=== PATIENT | female | born 1985 | race African-American/Black ===

== ENCOUNTER 2017-03-13 16:05 | Emergency (ER) | payer OTHER ==
[~2017-03-13] VITALS: Ht 154.9 cm; Wt 89.0 kg
[~2017-03-13 16:05] MED LIST: BENZ100 PO; MMW SSP; Z.0.NO CURRENT MEDS; ZITH250T PO; ZOFR8TAB4 SL
[2017-03-13 16:07] VITALS: BP 140/62; PULSE 85; RESP 18; TEMP 98.7; O2SAT 96
[2017-03-13] MEDS ORDERED: GELATIN 12 MM/7 MM FOAM TOPICAL ONE (16:45)
[2017-03-13] MEDS ORDERED: CEPH-460 PO (17:06)
--- NOTE | 2017-03-13 17:08 | PD ---
HPI Chief Complaint: Laceration/Skin Injury Time Seen by Provider: 16:23 Travel History International Travel<30 days: No Contact w/Intl Traveler<30days: No Traveled to known affect area: No History of Present Illness HPI 31 year old female with right thumb laceration caused by kitchen knife at work [employer]. She has full ROM and normal sensation of the finger. She has a 1cm diameter avulsion skin injury over the IP joint of the thumb. pain at he site of laceration. Symptoms severity moderate. No alleviating factors. PFSH Past Medical History Medical History: Denies Significant Hx Diminished Hearing: No Tetanus Vaccination: Unknown Influenza Vaccination: No ?: Not Past Surgical History Abdominal Surgery: Yes Social History Alcohol Use: No Tobacco Use: No Substance Use: No Allergies-Medications (Allergen,Severity, Reaction): Coded Allergies: No Known Allergies (Verified Adverse Reaction, Unknown, 03/13/17) Reported Meds & Prescriptions Reported Meds & Active Scripts Active No Active Prescriptions or Reported Medications Review of Systems Except as stated in HPI: all other systems reviewed are Neg Physical Exam Narrative GENERAL: Alert well-appearing female no acute distress SKIN: Warm and dry. 1 cm diameter avulsion laceration to the left thumb dorsal aspect over the PIP joint. No tendon injury visualized a suspected. Full range of motion. Normal sensation. Brisk cap refill HEAD: Normocephalic. EYES: No scleral icterus. No injection or drainage. NECK: Supple, trachea midline. No JVD or lymphadenopathy. MUSCULOSKELETAL: No cyanosis, or edema. Data Data Last Documented VS Vital Signs Date Time Temp Pulse Resp B/P (MAP) Pulse Ox O2 Delivery O2 Flow Rate FiO2 03/13/17 16:07 98.7 85 18 140/62 (88) 96 Orders Orders Gelatin 12 Mm/7 Mm Top (Gelfoam 12 Mm/7 (03/13/17 16:45) [facility] Medical Decision Making Medical Screen Exam Complete: Yes Emergency Medical Condition: Yes Differential Diagnosis avulsion skin injury, finger laceration, tendon laceration Narrative Course 31 year old female with right thumb laceration caused by kitchen knife at work [employer]. She has full ROM and normal sensation of the finger. She has a 1cm diameter avulsion skin injury over the IP joint of the thumb. No tendon injury visualized or suspected. This type of wound is not amenable to repair by suturing. surgicel foam hemostat dressing applied. hemostasis achieved. Pt advised to F/U with PCP for recheck. Diagnosis Primary Impression: Avulsion of skin of finger Qualified Codes: S61.209A - Unspecified open wound of unspecified finger without damage to nail, initial encounter Referrals: Primary Care Physician Additional Instructions: Do not remove dressing for 24-48 hours. After that time. Begin washing the area daily with soap and water. Apply clean dry dressing daily. Follow-up with your primary doctor for recheck wound. Scripts Cephalexin (Keflex) 500 Mg Cap 500 MG PO Q6H for Infection for 5 Days, #20 CAP 0 Refills Prov: Temitope Figueroa 03/13/17 Disposition: 01 DISCHARGE HOME Condition: Stable Temitope Figueroa Mar 13, 2017 17:08
[2017-03-13] MEDS ORDERED: TETANUS/DIPHTHERIA TOXOID ADULT 0.5 ML VIAL IM ONE (17:15)
== END 2017-03-13 17:32 | disposition home or self-care (01) ==
LOC: PHEFT 16:05
DX: S61.209A Unspecified open wound of unspecified finger without damage to nail, initial encounter (principal); Z23 Encounter for immunization; W26.0XXA Contact with knife, initial encounter; Y99.0 Civilian activity done for income or pay
CPT/HCPCS: 90471; 90714

== ENCOUNTER 2017-05-25 09:20 | Emergency (ER) | payer SELFPAY ==
[~2017-05-25] VITALS: Ht 154.9 cm; Wt 84.7 kg
[~2017-05-25 09:20] MED LIST changes: -BENZ100 PO; +CEPH-460 PO; -MMW SSP; -Z.0.NO CURRENT MEDS; -ZITH250T PO; -ZOFR8TAB4 SL
[2017-05-25 09:23] VITALS: BP 119/63; PULSE 89; RESP 17; TEMP 98.4; O2SAT 99
--- NOTE | 2017-05-25 09:33 | PD ---
HPI Chief Complaint: Cold / Flu Symptoms Time Seen by Provider: 09:26 Travel History International Travel<30 days: No Contact w/Intl Traveler<30days: No Traveled to known affect area: No History of Present Illness HPI This is a 31-year-old female who presents for evaluation. For 4 days she has had cough, congestion, decreased appetite. The cough is productive with clear and yellow sputum. She has had fevers, chills, myalgias, maximal temperature 100.1 degrees. She has been using TheraFlu and other [id number] cough and cold medications. Denies dysuria, flank pain, abdominal pain, rash, recent travel. Multiple sick contacts at work. No other complaints. PFSH Past Medical History Diminished Hearing: No ?: Not LMP: 2 WEEKS AGO Past Surgical History Abdominal Surgery: Yes Social History Alcohol Use: No Tobacco Use: No Substance Use: No Allergies-Medications (Allergen,Severity, Reaction): Coded Allergies: No Known Allergies (Verified Adverse Reaction, Unknown, 05/25/17) Reported Meds & Prescriptions Reported Meds & Active Scripts Active Tessalon Perles (Benzonatate) 100 Mg Cap 200 Mg PO TID PRN Zofran (Ondansetron HCl) 4 Mg Tab 4 Mg PO Q6HR PRN Review of Systems Except as stated in HPI: all other systems reviewed are Neg Physical Exam Narrative GENERAL: Well-nourished female in no acute distress SKIN: Warm and dry. HEAD: Atraumatic. Normocephalic. EYES: Pupils equal and round. No scleral icterus. No injection or drainage. ENT: No nasal bleeding or discharge. Mucous membranes pink and moist. No oral pharyngeal erythema or exudate. NECK: Trachea midline. No JVD. No lymphadenopathy CARDIOVASCULAR: Regular rate and rhythm. No murmur appreciated. RESPIRATORY: No accessory muscle use. Clear to auscultation. Breath sounds equal bilaterally. GASTROINTESTINAL: Abdomen soft, non-tender, nondistended. Hepatic and splenic margins not palpable. Data Data Last Documented VS Vital Signs Date Time Temp Pulse Resp B/P (MAP) Pulse Ox O2 Delivery O2 Flow Rate FiO2 05/25/17 09:23 98.4 89 17 119/63 (81) 99 Orders Orders Influenzae A/B Antigen (05/25/17 09:31) Oral Rehydration (05/25/17 09:31) Ondansetron Odt (Zofran Odt) (05/25/17 09:45) Ed Discharge Order (05/25/17 09:55) MDM Medical Decision Making Medical Screen Exam Complete: Yes Emergency Medical Condition: Yes Medical Record Reviewed: Yes Differential Diagnosis Influenza, sinusitis, pneumonia, bronchitis Narrative Course 31-year-old female who for 4 days has been expressing cough, congestion, nausea , fevers, chills, myalgias. Physical examination is reassuring. Her lungs are clear to auscultation and I don't suspect pneumonia. Her ENT examination is unremarkable. I suspect that the patient has a viral respiratory infection. An influenza antigen test was performed and it is negative. She will be discharged with Stacy Shannon. Discussed signs and symptoms old records returning to the emergency room. Diagnosis Primary Impression: Upper respiratory infection Departure Forms: Tests/Procedures, Work Release Enter return to work date: May 28, 2017 Additional Instructions: Medication as needed. Stable hydrated well-nourished, get plenty of rest. Tylenol or Motrin for chills and fevers per dosing instructions on bottle. Return for any acutely new or worsening symptoms such as dehydration, acute shortness of breath. Med/Other Pt SpecificInfo: Prescription(s) given Scripts Benzonatate (Tessalon Perlangela) 100 Mg Cap 200 MG PO TID Y for COUGH, #30 CAP 0 Refills Prov: Umu Jay MD 05/25/17 Ondansetron (Zofran) 4 Mg Tab 4 MG PO Q6HR Y for NAUSEA OR VOMITING, #15 TAB 0 Refills Prov: Umu Jay MD 05/25/17 Disposition: 01 DISCHARGE HOME Condition: Stable Bret Austin May 25, 2017 09:33
[2017-05-25] MEDS ORDERED: ONDANSETRON ODT 4 MG TAB PO ONE (09:45)
[2017-05-25] MEDS ORDERED: ZOFR4TAB PO (09:55)
[2017-05-25] MEDS ORDERED: BENZ100 PO (09:55)
== END 2017-05-25 10:21 | disposition home or self-care (01) ==
LOC: PHEFT 09:20
DX: J06.9 Acute upper respiratory infection, unspecified (principal); R05 Cough; R50.9 Fever, unspecified; M79.1 Myalgia; R63.0 Anorexia
CPT/HCPCS: 87804; 99284